=== PATIENT | male | born 1980 | race Caucasian/White ===

== ENCOUNTER 2019-07-31 11:11 | Outpatient (CLI) | payer BC, SELFPAY ==
--- NOTE | ~2019-07-31 | XR_ITS ---
EXAMINATION: XR abdomen/kub 1V INDICATION: Right flank pain, calculus of the kidney TECHNIQUE: Supine views of the abdomen were obtained on 2 radiographs. COMPARISON: 09/02/2018 FINDINGS: Stable stones measuring 6 mm and 2 mm project in the right kidney. There are phleboliths of the pelvis. No stones are identified along the expected courses of the ureters. The bowel gas patter n is normal. Mild bilateral hip osteoarthritis is noted. IMPRESSION: 1. Stable right nephrolithiasis. Reviewed, dictated and finalized at location A.
== END 2019-07-31 11:12 | disposition home or self-care (01) ==
LOC: ANHIMG 11:16
PROVIDERS: PCP Family Medicine; Visit Provider Urology
DX: N20.0 Calculus of kidney (principal)
CPT/HCPCS: 74018

== ENCOUNTER 2019-08-12 17:50 | Outpatient (CLI) | payer BC, SELFPAY ==
--- NOTE | ~2019-08-12 | CT_ITS ---
EXAMINATION: CT abdomen pelvis wo con EXAM DATE: 08/12/2019 18:37 INDICATION: Right flank pain. TECHNIQUE: Spiral CT of the abdomen and pelvis was performed without contrast. Axial, coronal and sag ittal images were reviewed. The dose-length product (DLP) for this examination was 334.20 mGy-cm. T he exposure was tailored according to patient size (auto mA exposure control), and iterative reconstr uction (ASIR) was used as additional dose reduction technique. Comparison is made to prior examinatio n from 07/28/2017. FINDINGS: There is 6 mm stone in the right renal pelvis without caliectasis, but there is mild inflam mation of the renal pelvis at this location. No hydroureter. There is 3 mm right superior calyceal st one. No left-sided nephrolithiasis. The prostate is unremarkable. The bladder is unremarkable. The liver, spleen, adrenal glands and pancreas are unremarkable. Gallbladder is unremarkable. No bilia ry obstruction. There is no retroperitoneal or pelvic lymphadenopathy. The appendix is normal. The stomach and small bowel are unremarkable. There is expected amount of c olonic stool. No free intraperitoneal gas. The heart is normal in size. There are no pericardial or pleural effusions. The lung bases are unremarkable. Chronic bilateral L5 spondylolysis without spondylolisthesis. IMPRESSION: Right renal pelvic 6 mm stone with mild regional inflammation but no hydronephrosis, does n't appear to be obstructing at present. Could be intermittently obstructing. Upper UTI not excludabl e. Reviewed, dictated and finalized at location A. IMPRESSION: Right renal pelvic 6 mm stone with mild regional inflammation but n o hydronephrosis, doesn't appear to be obstructing at present. Could be intermi ttently obstructing. Upper UTI not excludable.
== END 2019-08-12 17:51 | disposition home or self-care (01) ==
PROVIDERS: PCP Family Medicine; Visit Provider Urology
DX: R10.9 Unspecified abdominal pain (principal)
CPT/HCPCS: 74176

== ENCOUNTER 2019-09-07 08:14 | Outpatient (CLI) | payer BC, SELFPAY ==
--- NOTE | 2019-09-07 08:17 | ECG_ITS ---
Measurements Intervals [place] Rate: 80 P: 71 [place]: 148 QRS: -26 QRSD: 124 T: 46 QT: 336 QTc: 387 Interpretive Statements SINUS RHYTHM WITH SINUS ARRHYTHMIA INTRAVENTRICULAR CONDUCTION DELAY DELAYED PRECORDIAL R/S TRANSITION ST ELEVATION IN DIFFUSE LEADS, PROBABLY EARLY REPOLARIZATION BORDERLINE ECG Electronically Signed On 09-07-2019 8:58:28 CDT by Jose M Rueda D.O.
[2019-09-07 09:19] LABS: Prothrombin Time 12.5 Seconds (11.1-14.7)
== END 2019-09-07 08:15 | disposition home or self-care (01) ==
LOC: ANHSURGERY 08:17
PROVIDERS: PCP Family Medicine; Visit Provider Urology
DX: N20.0 Calculus of kidney (principal); E78.5 Hyperlipidemia, unspecified; I45.9 Conduction disorder, unspecified; R94.31 Abnormal electrocardiogram [ECG] [EKG]
CPT/HCPCS: 36415; 85610; 85730; 87086; 93005

== ENCOUNTER 2019-09-09 00:52 | Outpatient (CLI) | payer BC, SELFPAY ==
[2019-09-09 17:34] LABS: SARS-CoV-2 RNA PCR Negative
== END 2019-09-09 00:53 | disposition home or self-care (01) ==
LOC: ANHCOVIDDT 00:53
PROVIDERS: PCP Family Medicine; Visit Provider Urology
DX: Z01.812 Encounter for preprocedural laboratory examination (principal); Z11.59 Encounter for screening for other viral diseases
CPT/HCPCS: 87635; C9803; U0003

== ENCOUNTER 2019-09-11 02:03 | Day surgery (SDC) | payer BC, SELFPAY ==
[2019-09-02 14:26] VITALS: BMI 28.1
--- NOTE | 2019-09-09 14:19 | PM.HPGS ---
History of Present Illness History of Present Illness Consent: Risks, benefits, and alternatives have been discussed and questions answered. Patient agrees to proceed with procedure. Chief complaint: right renal stone Narrative: John Soria is a 38 year old male a/p one prior ESWL to the [facility] in 2019. He has 2 persistent fragments that are somewhat problematic and elects for a 2nd ESWL. Review of Systems Cardiovascular: Cardiovascular: Denies chest pain, Denies lightheadedness, Denies palpitations and Denies dyspnea Respiratory: Respiratory: Denies dyspnea Gastrointestinal: Gastrointestinal: Denies diarrhea, Denies nausea and Denies vomiting Genitourinary: Genitourinary: Denies hematuria and Denies dysuria Endocrine: Endocrine: Denies palpitations Meds Home Medications and Allergies Home Medications Medication Instructions Recorded Confirmed Type simvastatin 20 mg PO HS 09/01/19 09/02/19 History multivitamin 1 tablet PO DAILY 09/02/19 09/02/19 History Allergies Allergy/AdvReac Type Severity Reaction Status Date / Time Sulfa (Sulfonamide Allergy Unknown RASH Verified 09/02/19 14:26 Antibiotics) Exam Const: General: no acute distress Resp: Effort & Inspection: normal respiratory effort GI: Inspection: non-distended GI Palp: No abdominal tenderness and No Guarding due to palpation present (GI) Auscultation: normal bowel sounds Assessment and Plan Assessment and plan (1) Right kidney stone: Code(s): N20.0 - Calculus of kidney Status: Acute Assessment and Plan: Right ESWL
[2019-09-11] VITALS (8 sets, daily range): BP systolic 110–131; BP diastolic 70–86; PULSE 74–86; RESP 12–18; TEMP 36.3–36.8; O2SAT 98–100
--- NOTE | ~2019-09-11 | XR_ITS ---
EXAMINATION: XR abdomen/kub 1V DATE: 09/11/2019 06:18 INDICATION: Right renal extra corporeal shock wave lithotripsy. TECHNIQUE: A supine view of the abdomen on 2 radiographs was obtained. COMPARISON: 08/12/2019 FINDINGS: There are 3 stone fragments measuring between 3 mm and 6 mm along with a few minute fragments. No lef t-sided urolithiasis. Several phleboliths and atherosclerotic calcifications in the pelvis. Normal angel wel gas pattern. IMPRESSION: 1. Several stone fragments at the upper pole of the right kidney Reviewed, dictated and finalized at location A.
[2019-09-11] MEDS: LACTATED RINGERS 1,000 ML 30 ML IV CONT ×2 (06:45→08:07)
--- NOTE | 2019-09-11 06:47 | WPDHPUPDATE1 ---
History and Physical Update Update Date/Time: 09/11/19 06:47 History and Physical has been reviewed, including an updated exam of the patient. There are NO changes in the patient's condition. Risks, benefits, and alternatives have been discussed and questions answered. Patient agrees to proceed with procedure.
--- NOTE | 2019-09-11 06:59 | WPDANESEPPF ---
Anes - Initial Pre Proc Eval Procedure: Operation Date: 09/11/19 07:30 Proposed Procedures p Right Extracorporeal Shock Wave Lithotripsy - Christopher Win MD Date/Time: 09/11/19 06:59 Surgeon: Christopher Win MD Pre Op Diagnosis: right renal stone Patient Data Age: 38 Gender: M Height: 1.73 m Weight: 83.91 kg Allergies Allergy/AdvReac Type Severity Reaction Status Date / Time Sulfa (Sulfonamide Allergy Unknown RASH Verified 09/02/19 14:26 Antibiotics) Home Medications Medication Instructions Recorded Confirmed Type simvastatin 20 mg PO HS 09/01/19 09/02/19 History multivitamin 1 tablet PO DAILY 09/02/19 09/02/19 History Patient hx anesthesia problems: none Family hx anesthesia problems: none [facility] Past Medical History Medical History (Updated 09/11/19 @ 07:00 by Nestor Stack MD) Asthma CHILD Hypercholesterolemia Overweight (BMI 25.0-29.9) Right kidney stone Anes - Eval Final PreProcedure Day of Procedure 09/11/19 06:59 Patient weight: overweight Heart: regular rate and rhythm Lungs: clear to auscultation and normal air movement Airway: Mallampati scale class II Neurological: alert and oriented Last oral intake: >/= 8 hours ASA classification: II Emergent: no Anesthetic plan: proceed Anesthesia type and monitoring: general LMA Informed Consent: The patient's anesthetic plan and its attendant risks and benefits were discussed with the patient/family/POA. Questions were solicited and answers provided to the satisfaction of the patient/family/POA.
[2019-09-11] MEDS: ceFAZolin 2 GM/D5W 50 ML 2 GM/50 ML BAG IVPB (07:21)
--- NOTE | 2019-09-11 08:02 | PM.PROC ---
Procedure Note - Detailed Date of procedure: 09/11/19 Pre-op diagnosis: right renal stone Post-op diagnosis: same Procedure performed: Right ESWL Description of procedure: The patient was brought to the operative suite where he was placed in the supine position on the Dornier lithotripsy table. The focal point of the lithotripter was placed at a two stones in right kidney, each ~4mm. A total of 2500 shocks were delivered at a power setting of 4. There appeared to be good fragmentation of the stone. The patient tolerated the procedure well and was taken to the recovery room in good condition. Implants: None Anesthesia: GLMA Surgeon: Christopher Win MD Estimated blood loss (mL): 0 Drains: No Packing: No Pathology: none sent Complications: No immediate complications Condition: stable Disposition: PACU
== END 2019-09-11 09:45 | disposition home or self-care (01) ==
PROVIDERS: PCP Family Medicine; Visit Provider Urology
PROC: (CPT 50590; principal; 2019-09-11 07:30)
DX: N20.0 Calculus of kidney (principal); Z87.442 Personal history of urinary calculi; E78.5 Hyperlipidemia, unspecified; E66.3 Overweight; Z68.28 Body mass index [BMI] 28.0-28.9, adult; Z79.899 Other long term (current) drug therapy; Z88.2 Allergy status to sulfonamides
CPT/HCPCS: 50590; 74018; J0690; J1100; J2250; J2405; J2704; J3010; J7120

== ENCOUNTER 2019-12-21 08:24 | Outpatient (CLI) | payer BC, SELFPAY ==
--- NOTE | ~2019-12-21 | XR_ITS ---
XR abdomen/kub 1V DATE: 12/21/2019 08:43 INDICATION: Lithotripsy in September 2019 TECHNIQUE: AP rejection, 2 views COMPARISON: 09/11/2019 KUB FINDINGS: A triangular approximately 5 mm calcification overlies the right renal pelvis. There is a moderately prominent amount of fecal material in the right colon and transverse colon. No bowel obstruction is evident. The psoas shadows are intact. No visceromegaly is detected. There are stable bilateral pelvic calcifications. Included skeletal structures are unremarkable. IMPRESSION: 5 mm calcified right renal pelvic calculus Reviewed, dictated and finalized at Location A. Reviewed, dictated and finalized at location A.
== END 2019-12-21 08:25 | disposition home or self-care (01) ==
PROVIDERS: PCP Family Medicine; Visit Provider Urology
DX: N20.0 Calculus of kidney (principal)
CPT/HCPCS: 74018

== ENCOUNTER 2021-03-06 08:12 | Outpatient (CLI) | payer BC, SELFPAY ==
--- NOTE | ~2021-03-06 | XR_ITS ---
XR abdomen/kub 1V DATE: 03/06/2021 08:27 INDICATION: Right flank pain. History of stones. TECHNIQUE: AP view COMPARISON: 12/21/2019 KUB FINDINGS: Previously reported 5 mm calcified calculus overlying the right renal pelvis on 12/21/2019 K UB currently overlies the lower pole of the right kidney. No other apparent urinary tract calcificati on is seen or change since 12/21/2019 is noted. The psoas shadows are intact. No visceromegaly is detected. There is a prominent amount of fecal material in the colon but no evidence of bowel obstruction. IMPRESSION: Nonobstructing 5 mm calcified calculus of the lower pole right kidney Reviewed, dictated and finalized at Location A. Reviewed, dictated and finalized at location B. ER IMPRESSION: Nonobstructing 5 mm calcified calculus of the lower pole right kidn ey
== END 2021-03-06 08:13 | disposition home or self-care (01) ==
LOC: ANHIMG 08:16
PROVIDERS: PCP Family Medicine; Visit Provider Urology
DX: R10.9 Unspecified abdominal pain (principal); N20.0 Calculus of kidney
CPT/HCPCS: 74018

== ENCOUNTER 2021-06-26 15:46 | Emergency (ER) | payer BC, SELFPAY ==
--- NOTE | ~2021-06-26 | XR_ITS ---
EXAM: [id number] HISTORY: neck pain x 1 yr, worsening Rt sided pain; no injury COMPARISON: None available FINDINGS: Craniocervical association and atlantoaxial joint are normal. No prevertebral soft tissue swelling. Mild anterior wedge deformity of C7, presumed chronic given the lack of injury history. The facets are aligned. 2 mm retrolisthesis of C5 on C6. Remaining vertebral bodies are aligned. IMPRESSION: Presumed old mild wedge compression deformity at C7. Trace retrolisthesis of C5 on C6, presumably on a degenerative basis. Reviewed, dictated and finalized at location K.
[2021-06-26 15:55] VITALS: BP 145/96; PULSE 80; RESP 16; TEMP 36.6; O2SAT 100
[2021-06-26 17:46] VITALS: PULSE 70; RESP 18; O2SAT 100
[2021-06-26 17:47] VITALS: BP 148/90
--- NOTE | 2021-06-26 18:32 | ED.GENADULT ---
HPI - General Adult General Chief complaint: Headache Stated complaint: head pressure Time Seen by Provider: 06/26/21 16:52 History of Present Illness HPI narrative: Patient is a 40-year-old male who presents for 1 year of left and right ear pain that is increased in severity over the past 3 days. Patient states the pain begins in his left ear and radiates over to his right ear along his jaw. It is provoked by certain positions, but for past 2 days has been relatively constant. Tried 500 mg of Tylenol today without relief, however he has not taken any medications in the past for this. Additionally reports some right-sided neck pain that is also provoked with positions. States that he wants to get checked out before he leaves town . He denies any fever, visual changes, weakness, falls, trauma to his neck or head, ear discharge, numbness or tingling in his extremities. Related Data Home Medications Medication Instructions Recorded Confirmed simvastatin 20 mg PO HS 09/01/19 06/26/21 multivitamin 1 tablet PO DAILY 09/02/19 06/26/21 Allergies Allergy/AdvReac Type Severity Reaction Status Date / Time Sulfa (Sulfonamide Allergy Unknown RASH Verified 09/11/19 07:31 Antibiotics) Review of Systems Review of Systems: Gen: Denies fevers or chills Eyes: Denies eye pain or visual change ENT: Reports ear pain. Denies congestion Respiratory: Denies shortness of breath or cough CV: Denies chest pain or palpitations GI: Denies abdominal pain nausea, emesis or diarrhea denies burning, urgency, frequency or hematuria Musculoskeletal: Reports neck pain. Denies back pain or muscle pain Neuro: Denies numbness, tingling, weakness or focal weakness Skin: Denies rash Except as documented, all other systems reviewed and negative [facility] Past Medical History Medical History Asthma CHILD Hypercholesterolemia Overweight (BMI 25.0-29.9) Right kidney stone Exam Narrative: APPEARANCE: Anxious appearing male. Head is normocephalic and atraumatic. EYES: PERRLA/EOMI, conjunctivae clear NOSE: No nasal drainage EARS: Left ear is mildly erythematous. No mastoid tenderness bilaterally. No pain when pulling on tragus. TMs clear bilaterally. THROAT: Oropharynx is clear. Mucous membranes are moist. NECK: Supple. No adenopathy, no masses. RESPIRATORY: Airway patent, respirations nonlabored. Clear to auscultation bilaterally, no rales, rhonchi, wheezing. CARDIOVASCULAR: Regular rate and rhythm without murmurs, rubs, or gallops. ABDOMINAL: Normoactive bowel sounds. Soft, nontender, nondistended. No rebound tenderness or guarding. MUSCULOSKELETAL: Spurling's test positive. No midline tenderness along the C-spine or T-spine. Full range of motion in neck without pain. 2+ radial pulses bilaterally. Full range of motion in bilateral arms without difficulty. No edema. NEURO: Cranial nerves II through XII intact. Normal speech. SKIN:: Skin is warm and dry. No rashes. PSYCHIATRIC: Anxious mood. Course Vital Signs Vital signs: Vital Signs Temperature 97.9 F 06/26/21 15:55 Pulse Rate 80 06/26/21 15:55 Respiratory Rate 16 06/26/21 15:55 Blood Pressure 145/96 H 06/26/21 15:55 Pulse Oximetry 100 06/26/21 15:55 Temperature 97.9 F 06/26/21 15:55 Pulse Rate 70 06/26/21 17:46 Respiratory Rate 18 06/26/21 17:46 Blood Pressure 148/90 H 06/26/21 17:47 Pulse Oximetry 100 06/26/21 17:46 Medical Decision Making [facility] Narrative Medical decision making narrative: 40-year-old male here for evaluation of neck pain that has been present for over a year, but has worsened without obvious trigger for the past 3 days. Patient has no cranial nerve deficits with clear TMs bilaterally. Spurling's test positive, which is suspicious for cervical radiculopathy. X-rays with evidence of old compression deformity at C7 and presumably degenerative retrolisthesis on C5 an
[2021-06-26] MEDS: IBUPROFEN 600 MG TABLET PO (19:24)
== END 2021-06-26 19:51 | disposition home or self-care (01) ==
PROVIDERS: Emergency Provider Emergency Medicine; PCP Family Medicine
DX: M54.12 Radiculopathy, cervical region (principal); J45.909 Unspecified asthma, uncomplicated; E78.00 Pure hypercholesterolemia, unspecified; E66.3 Overweight; Z68.28 Body mass index [BMI] 28.0-28.9, adult; Z87.442 Personal history of urinary calculi
CPT/HCPCS: 72040; 99283; A9270

== ENCOUNTER 2021-07-07 14:38 | Outpatient (CLI) | payer BC, SELFPAY ==
--- NOTE | ~2021-07-07 | CT_ITS ---
EXAMINATION: CT thoracic spine wo con DATE: 07/07/2021 15:15 INDICATION: Upper back pain TECHNIQUE: Computed tomography (CT) of the thoracic spine was performed without intravenous contrast. Automated exposure control and iterative reconstruction technique were employed. The dose-length pro duct was 975.48 mGy-cm. COMPARISON: None FINDINGS: 5 mm thoracic dextrocurvature. Sagittal alignment is normal. Chronic appearing mild anterior wedging at T1. Remaining thoracic vertebral body heights are normal. Disc heights are normal. Scattered minim al to mild thoracic facet osteoarthritis. No central canal or neural foraminal stenosis. Mild depende nt atelectasis in the bilateral lower lobes. 6 mm nonobstructing stone at a lower pole calyx of the r ight kidney. IMPRESSION: 1. 5 degrees thoracic dextrocurvature. 2. Chronic appearing mild anterior wedging at T1. No acute osseous abnormality. 3. 6 mm nonobstructing right renal stone. Reviewed, dictated and finalized at location A.
--- NOTE | ~2021-07-07 | CT_ITS ---
EXAMINATION: CT cervical spine wo con DATE: 07/07/2021 15:15 INDICATION: Neck pain TECHNIQUE: Computed tomography (CT) of the cervical spine was performed without intravenous contrast. Automated exposure control and iterative reconstruction technique were employed. The dose-length pro duct was 422.67 mGy-cm. COMPARISON: Helical spine radiographs dated 06/26/2021 FINDINGS: Chronic 1 mm retrolisthesis C5 on C6. Alignment is otherwise normal. Unchanged none. Minimal anterior wedging at T7 and T1. No fracture. Disc heights are normal. Scattered mild cervical uncovertebral an d facet osteoarthritis. No significant central canal or neural foraminal stenosis. The mastoid air ce lls, middle ear cavities and visualized portions of the airway, paranasal sinuses and apices of lungs are clear. IMPRESSION: 1. Negligible cervical spondylosis with chronic mild anterior wedging at C7 and T1. No acute osseous abnormality. Reviewed, dictated and finalized at location A.
== END 2021-07-07 14:39 | disposition home or self-care (01) ==
PROVIDERS: PCP Family Medicine; Visit Provider Family Medicine
DX: M54.2 Cervicalgia (principal); M54.6 Pain in thoracic spine; N20.0 Calculus of kidney
CPT/HCPCS: 72125; 72128

== ENCOUNTER 2023-08-02 08:14 | Outpatient (CLI) | payer BC, SELFPAY ==
--- NOTE | ~2023-08-02 | XR_ITS ---
EXAMINATION: XR abdomen/kub 1V DATE: 08/02/2023 08:32 INDICATION: Calculus of kidney. TECHNIQUE: A supine view of the abdomen on 2 radiographs was obtained. COMPARISON: Abdomen radiograph 03/06/2021, CT abdomen and pelvis 08/12/2019 FINDINGS: There are no dilated loops of bowel. The kidneys are obscured by bowel. There is an [address] one in right kidney. There are phleboliths in the pelvis. IMPRESSION: 1. 8 mm stone in right kidney. Reviewed, dictated and finalized at location E.
== END 2023-08-02 08:15 | disposition home or self-care (01) ==
PROVIDERS: PCP Family Medicine; Visit Provider Urology
DX: N20.0 Calculus of kidney (principal)
CPT/HCPCS: 74018

== ENCOUNTER 2023-09-13 09:12 | Outpatient (CLI) | payer BC, SELFPAY ==
--- NOTE | ~2023-09-13 | CT_ITS ---
EXAMINATION: CT abdomen pelvis wo con DATE: 09/13/2023 09:28 INDICATION: Calculus in right kidney. TECHNIQUE: Computed tomography (CT) of the abdomen and pelvis was performed without intravenous contr ast. Automated exposure control and iterative reconstruction technique were employed. The dose-length product was 561.33 mGy-cm. COMPARISON: CT abdomen and pelvis 08/12/2019 FINDINGS: The visualized portions of the lung bases demonstrate mild atelectasis. No pleural effusion . The heart size is normal. No pericardial effusion. The liver, gallbladder, spleen, pancreas, adrena l glands, and left kidney are normal. There is a 7 mm stone in right kidney. There is a 5 mm stone in distal right ureter. There are no dilated loops of bowel. The appendix is normal. There are no patho logically enlarged lymph nodes. There is no free intraperitoneal fluid. There are chronic bilateral L 5 pars defects. IMPRESSION: 1. 5 mm stone in distal right ureter. No hydronephrosis. 2. 7 mm nonobstructing right kidney stone. Reviewed, dictated and finalized at location A.
== END 2023-09-13 09:13 ==
LOC: MICIMG 09:13
PROVIDERS: PCP Family Medicine; Visit Provider Urology
DX: N20.2 Calculus of kidney with calculus of ureter (principal)
CPT/HCPCS: 74176

== ENCOUNTER 2023-12-14 07:29 | Outpatient (CLI) | payer BC, SELFPAY ==
--- NOTE | 2023-12-14 07:58 | ECG_ITS ---
Test Date: 2023-12-14 08:05:40 Measurements Intervals [place] Rate: 79 P: 65 [place]: 169 QRS: 4 QRSD: 94 T: 57 QT: 349 QTc: 400 Interpretive Statements SINUS RHYTHM INCOMPLETE RIGHT BUNDLE BRANCH BLOCK BORDERLINE ECG No previous ECG available for comparison Electronically Signed On 12-14-2023 08:53:39 CDT by Jose M Rueda D.O.
[2023-12-14 08:30] LABS: INR 1.1; Prothrombin Time 14.2 Seconds (11.1-14.7)
[2023-12-14 08:31] LABS: Partial Thromboplastin Time 29.5 Seconds (22.3-36.8)
== END 2023-12-14 07:30 | disposition home or self-care (01) ==
LOC: ANHLAB 07:30
PROVIDERS: PCP Family Medicine; Visit Provider Urology
DX: N20.1 Calculus of ureter (principal); E78.00 Pure hypercholesterolemia, unspecified; I45.10 Unspecified right bundle-branch block
CPT/HCPCS: 36415; 85610; 85730; 87086; 93005

== ENCOUNTER 2023-12-20 04:26 | Day surgery (SDC) | payer BC, SELFPAY ==
--- NOTE | 2023-12-10 07:24 | PM.HPGS ---
History of Present Illness History of Present Illness Consent: Risks, benefits, and alternatives have been discussed and questions answered. Patient agrees to proceed with procedure. Chief complaint: renal &ureteral right stones Narrative: John Soria is a 43 year old male with a history of recurrent urolithiasis. In August 2023 he had right flank pain and imaging demonstrating an 8 mm right lower calyceal stone and a 5 mm right distal ureteral calculus. He presents for simultaneous ureteroscopy and right ESWL. He is aware of the risks including, but not limited to, need for additional procedures, stent placement, hematuria and perinephric hematoma [facility] Past Medical History Medical History Asthma CHILD Hypercholesterolemia Overweight (BMI 25.0-29.9) Right kidney stone Meds Home Medications and Allergies Home Medications Medication Instructions Recorded Confirmed Type simvastatin 20 mg tablet 20 mg PO HS 09/01/19 06/26/21 History multivitamin 1 tablet PO DAILY 09/02/19 06/26/21 History Allergies Allergy/AdvReac Type Severity Reaction Status Date / Time Sulfa (Sulfonamide Allergy Unknown RASH Verified 09/11/19 07:31 Antibiotics) Exam Const: General: no acute distress Resp: Effort & Inspection: normal respiratory effort GI: Inspection: non-distended GI Palp: No abdominal tenderness and No Guarding due to palpation present (GI) Auscultation: normal bowel sounds Assessment and Plan Assessment and plan (1) Right kidney stone: Code(s): N20.0 - Calculus of kidney Status: Acute (2) Right ureteral stone: Code(s): N20.1 - Calculus of ureter Status: Acute Assessment and Plan: Cystoscopy, right ureteroscopy with stone extraction, possible laser lithotripsy, retrograde pyelography and stent placement. Right ESWL
[2023-12-13 14:11] VITALS: BMI 28.9
--- NOTE | 2023-12-13 14:19 | PC.NURSE ---
Report to the Outpatient Waiting Room, entrance under the green pavilion located off [facility], at time _0600_ on date _11-16-2074_. Planned Procedure Time: _0730_.? Time changes happen often and if your time is changed the preop area will call you the afternoon before. - You and your visitor will be asked to self-screen and do not enter if you have any COVID symptoms. Please call surgeon if you need to reschedule. - A mask is optional within the hospital at this time. Patients may have clear liquids (water, carbonated beverages, clear teas, apple juice) until 3 hours prior to surgery with a maximum of 20 ounces. - No food from midnight until time of surgery and no smoking Take only the following medications with a SIP of water on the morning of surgery: ___None DO NOT STOP ANY OF YOUR OTHER PRESCRIPTION MEDICATIONS PRIOR TO SURGERY EXCEPT THE FOLLOWING Medications to discontinue per physician Multivitamin Date to take last szpx____[id number] Please no make-up, nail gabonese, hairspray, perfume, deodorant, or body powder the day of surgery.? No jewelry (including any body piercings) or valuables the day of surgery, leave them at home.? Please take a shower or bath the night before, or the morning of, surgery with an antibacterial soap.? Wear comfortable, loose fitting clothing.? - Jewelry must be removed prior to entering the operating room.? Rings and piercings that are not removed may be cut off. - The hospital will not accept responsibility for valuables.? - Please leave all valuables, including medications, at home the day of surgery. If you are going home after surgery, a licensed personal driver must drive you home.? - NO public transportation without another adult if you receive anesthesia. - We recommend that an adult stay with you for 24 hours following discharge. - We also recommend that you do not drive, make important decision, drink alcoholic beverages, or take any drugs that were not prescribed by your health care provider for at least 24 hours after your discharge time. Follow any additional instructions given to you from your surgeon. Telephone instructions given to __Jared___and asked if any additional questions and then verbalized understanding. Patient advised to call surgeon office or pre surgery nurse liaison [phone] if any additional questions.
[2023-12-20] VITALS (8 sets, daily range): BP systolic 113–143; BP diastolic 67–90; PULSE 72–89; RESP 14–22; TEMP 36.2–36.3; O2SAT 97–100
--- NOTE | ~2023-12-20 | XR_ITS ---
Supine and upright views of the abdomen Clinical history: Lithotripsy COMPARISON: 08/02/2023 Findings: Bowel gas pattern is nonspecific. No evidence for obstruction or free air. 8 mm stone prese nt at the lateral interpolar region of the right kidney.. Osseous structures are intact. Impression: 8mm right renal stone, as above. Reviewed, dictated and finalized at location . Impression: 8mm right renal stone, as above.
--- NOTE | 2023-12-20 06:27 | WPDHPUPDATE1 ---
History and Physical Update Update Date/Time: 12/20/23 06:27 History and Physical has been reviewed, including an updated exam of the patient. There are NO changes in the patient's condition. Risks, benefits, and alternatives have been discussed and questions answered. Patient agrees to proceed with procedure.
[2023-12-20] MEDS: LACTATED RINGERS 1,000 ML 30 ML IV CONT ×2 (06:40→09:13)
--- NOTE | 2023-12-20 07:24 | WPDANESEPPF ---
Anes - Initial Pre Proc Eval Procedure: Operation Date: 12/20/23 07:30 Proposed Procedures p Right Extracorporeal Shock Wave Lithotripsy, - Christopher Win MD s Cystoscopy, Right Ureteroscopy, Right Stone Extraction, Possible Right Retrograde Pyelogram, Possible Right Stent Placement, Possible Holmium Laser - Christopher Win MD Date/Time: 12/20/23 07:24 Surgeon: Christopher Win MD Pre Op Diagnosis: renal &ureteral right stones Patient Data Age: 43 Gender: M Height: 1.73 m Weight: 93.7 kg Last Vital Signs Temp 97.1 F L 12/20/23 06:20 Pulse 82 12/20/23 06:20 Resp 20 12/20/23 06:20 BP 123/82 12/20/23 06:20 Pulse Ox 99 12/20/23 06:20 O2 Del Method Room Air 12/20/23 06:20 Allergies Allergy/AdvReac Type Severity Reaction Status Date / Time Sulfa (Sulfonamide Allergy Unknown RASH Verified 12/20/23 06:24 Antibiotics) Home Medications Medication Instructions Recorded Confirmed Type simvastatin 20 mg tablet 20 mg PO HS 09/01/19 12/20/23 History multivitamin 1 tablet PO DAILY 09/02/19 12/20/23 History Patient hx anesthesia problems: none Family hx anesthesia problems: none Results Review: All pre-operative results and documents have been reviewed as part of the pre-operative evaluation. [facility] Past Medical History Medical History Asthma CHILD Hypercholesterolemia Overweight (BMI 25.0-29.9) Right kidney stone Social History Social History Smoking status: Never smoker Alcohol intake: current Drinks per week: 2 Living arrangements: with family Spiritual care concerns: No Anes - Eval Final PreProcedure Day of Procedure 12/20/23 07:24 Patient weight: overweight Heart: regular rate and rhythm Lungs: clear to auscultation Airway: Mallampati scale class II Neurological: alert and oriented Last oral intake: >/= 8 hours ASA classification: II Emergent: no Anesthetic plan: proceed Anesthesia type and monitoring: general LMA and standard monitoring Results Review: All pre-operative results and documents have been reviewed as part of the pre-operative evaluation. Hyperlipidemia, mild asthma, stable of recent. Informed Consent: The patient's anesthetic plan and its attendant risks and benefits were discussed with the patient/family/POA. Questions were solicited and answers provided to the satisfaction of the patient/family/POA.
[2023-12-20] MEDS: ceFAZolin 2 GM/D5W 50 ML 2 GM/50 ML BAG IVPB (07:27)
[2023-12-20] MEDS: LIDOCAINE HCL 2% GEL UROJET 10 ML PKG MUCOUS MEM (07:45)
--- NOTE | 2023-12-20 07:50 | W.PM.PROC2 ---
Procedure Note - Detailed Date of Procedure 12/20/23 Pre-op Diagnosis Right renal and distal ureteral stones Post-op Diagnosis Same Procedure Performed Cystoscopy, right ureteroscopy with stone extraction, right ESWL Surgeon Christopher Win MD Anesthesia General Description of Procedure Patient is brought to the operative suite was prepped draped in routine sterile fashion 1st in a dorsal lithotomy position after the uneventful induction of a general LMA anesthetic. Cystoscopy was undertaken with a 19 F rigid cystoscope. He has no urethral stricture and minimal prostatic hyperplasia. Bladder mucosa is normal notes no intravesical foreign body or neoplasm. A 0.035 in glidewire was advanced to his right renal pelvis and the distal ureter was dilated with an 8 F 10 F dilator. Ureteroscopy was undertaken with a short tapered semi-rigid ureteral scope. His 5 mm stone persisting his distal right ureter. It is extracted with a 1.9 F disposable stone basket with ease. Because the ease of this manipulation I opted not to place a right ureteral stent. The patient was then repositioned in the supine position. The focal point of Lithotripter was placed it is 8 mm calcified right renal calculus which was easily visualized. Total of 2500 shocks were delivered at a power setting up to 4. Patient tolerated this procedure well was taken recovery good condition.
--- NOTE | 2023-12-20 08:50 | SUR.PHASEI ---
Simple mask removed [id number]
[2023-12-20] MEDS: fentaNYL CITRATE INJ (*CRX) 100 MCG/2 ML VIAL 25 MCG IV PUSH ×2 (09:00→09:05)
[2023-12-20] MEDS: oxyCODONE HCL (*CRX) 5 MG TAB IR PO (09:31)
== END 2023-12-20 10:20 | disposition home or self-care (01) ==
PROVIDERS: PCP Family Medicine; Visit Provider Urology
PROC: (CPT 50590; principal; 2023-12-20 07:30)
PROC: (CPT 52352; 2023-12-20 07:30)
DX: N20.2 Calculus of kidney with calculus of ureter (principal); E78.00 Pure hypercholesterolemia, unspecified
CPT/HCPCS: 52332; 50590; 74018; 82365; 88300; A9270; C1769; J0690; J2003; J2250; J2405; J2704; J3010; J7120

== ENCOUNTER 2023-12-27 11:32 | Outpatient (CLI) | payer BC, SELFPAY ==
--- NOTE | ~2023-12-27 | XR_ITS ---
XR abdomen/kub 1V Ordering provider: Christopher Win MD History: . RIGHT URETERAL STONE F/U 1 WEEK POST LITHOTRIPSY . Comparison: December 20, 2023 FINDINGS: BOWEL: Nonobstructive bowel gas pattern. ORGANOMEGALY: None. SIGNIFICANT PATHOLOGIC CALCIFICATIONS: Calcific shadows projected over the right sacral alar most lik fabio ureteric stones. OTHER: No free air is seen under the diaphragm. 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 IMPRESSION: NO ACUTE ABDOMINAL FINDINGS. Right lower ureteric stones. Reviewed, dictated and finalized at location A.
== END 2023-12-27 11:33 | disposition home or self-care (01) ==
LOC: ANHIMG 11:37
PROVIDERS: PCP Family Medicine; Visit Provider Urology
DX: N20.1 Calculus of ureter (principal)
CPT/HCPCS: 74018

== ENCOUNTER 2024-07-08 15:50 | Outpatient (CLI) | payer BC, SELFPAY ==
--- NOTE | ~2024-07-08 | XR_ITS ---
Exam: Abdomen 1V HISTORY: N20.0 - Calculus of kidney, FOLLOW UP COMPARISON: 12/27/2023 and 12/20/2023 TECHNIQUE: Supine images of the abdomen FINDINGS: Bowel gas pattern is nonspecific and non-obstructive. There is no free air or deep sulci. Decreased quantity of the calculi within the right hemipelvis, when compared with previous examinatio n. 9 mm calculus previously detected at the level of L2, projecting over the right kidney on 12/20/2023 i s no longer visualized on today's study. Lung bases are unremarkable. Bones and soft tissues are unremarkable. IMPRESSION: Nonspecific, nonobstructive bowel gas pattern. Decreased quantity of the calculi within the right hemipelvis, when compared with previous examinatio n. Reviewed, dictated and finalized at location A. IMPRESSION: Nonspecific, nonobstructive bowel gas pattern. Decreased quantity of the calculi within the right hemipelvis, when compared wi th previous examination.
--- OUTSIDE RECORDS SUMMARY | 2024-07-08 17:33 | XMS_ITS | Clinical Summary ---
Author Organization [facility] Address [address] [place] [address] Care Team Providers Care Rod Welder Name Role Phone Unavailable Primary Care Provider Unavailabl e Social History Tobacco Use Types Packs/Day Years Used Date Smoking Tobacco: Never Assessed Comments Unknown Sex and Gender Information Value Date Recorded Sex Assigned at Not on file Legal Sex Unknown 04/10/2019 1:18 AM PST Gender Identity Not on file Sexual Orientation Not on file Plan of Treatment Not on file
--- OUTSIDE RECORDS SUMMARY | 2024-07-08 17:33 | XMS_ITS | Encounter Summary ---
Author Organization [facility] Address [address] [place] [address] Care Team Providers Care Clarifier Name Role Phone Unavailable Primary Care Provider Unavailabl e Prior Encounters Date Type Department Care Team Description 04/06/2019 Converted 13x Documents [facility] [address] [place] [address] <No scans attached> Plan of Treatment Not on file Visit Diagnoses Not on file
--- OUTSIDE RECORDS SUMMARY | 2024-07-08 17:33 | XMS_ITS | Clinical Summary ---
Author Organization [facility] Address [address] [place] [address] Care Team Providers Care Spot Man Name Role Phone Artur Flores MD Primary Care Provider Source Comments [facility],non-owned Affiliates and Associated Physician Practices is amultiple site organization consisting of ambulatory clinics and hospital sitesin [place], [place], [place] and [place]. This disclosure is being madepursuant to the Care Everywhere program and may not contain all information available regarding this patient. Last updated 17.[facility] [place] Allergies Active Allergy Reactions Criticality Noted Date Comments Sulfa Drugs 03/26/2017 Medications * Be aware that medications may not be up to date on this document. Alwaysverify current medications with the patient. 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 Gender Identity Not on file Sexual Orientation Not on file Last Filed Vital Signs Vital Sign Reading Time Taken Comments Blood Pressure 120/80 11/07/2020 9:26 AM CDT Pulse 68 11/07/2020 9:26 AM CDT Temperature 36.8 C (98.3 F) 11/07/2020 9:26 AM CDT Respiratory Rate 16 11/07/2020 9:26 AM CDT Oxygen Saturation 98% 11/07/2020 9:26 AM CDT Inhaled Oxygen Concentration - - Weight 86.2 kg (190 lb) 11/07/2020 9:26 AM CDT Height 172.7 cm (5' 8 ) 11/07/2020 9:26 AM CDT Body Mass Index 28.89 11/07/2020 9:26 AM CDT Plan of Treatment Health Maintenance Due Date Last Done Comments COLOGUARD (AGES 45-75) - COL ON CA SCREENING 1978 COLON MONITORING 1978 COLONOSCOPY - COLON CA SCREENING 1978 CT COLONOGRAPHY - COLON CA SCREENING 1978 Colorectal Cancer Screening 1978 FIT - COLON CA SCREENING 1978 FLEX SIG - COLON CA SCREENING 1978 HIV SCREENING 1993 HEPATITIS C SCREENING 11/01/1996 DTAP/TDAP/TD VACCINES (1 - Tdap) 1997 HEPATITIS B VACCINE (1 of 3 - 19+ 3-dose series) 1997 SCREENING FOR DIABETES 11/07/2020 COVID-19 VACCINE (3 - 2023-2 5 season) 2023 06/26/2020, 06/03/2020 DEPRESSION SCREENING 03/18/2024 INFLUENZA VACCINE (Season Ended) 2024 12/05/2012 ZOSTER VACCINE (1 of 2) 2028 HIB VACCINE Aged Out No longer eligi ble based on patient's age to complete this topic HPV VACCINE Aged Out No longer eligi ble based on patient's age to complete this topic MENINGOCOCCAL (Group B) VACCINE SHARED DECISION-MAKING Aged Out No longer eligible based on patient's age to complete this topic MENINGOCOCCAL GROUPS A/C/Y/W VACCINE Aged Out No longer eligible b ased on patient's age to complete this topic PNEUMOCOCCAL VACCINE Aged Out No long er eligible based on patient's age to complete this topic Insurance [facility] SELF PAY NO INSURANCE Member Subscriber Plan / Payer (Ef fective for All Dates) Name:Darwin Soria Member ID:Not on file Relation to Subscriber:Not on file Name:DARWIN SORIA Subscriber ID:Not on file (Home) Address: [address] [place] [address] [place] [address] Payer ID:Not on file Group ID:Not on file Type:Self Pay Address: [place], [place] Care Teams Spot Man Relationship Specialty Start Date End Date Artur Flores MD [address] [place], [place] [id number] PCP - General Family Medicine 03/26/17
== END 2024-07-08 15:51 | disposition home or self-care (01) ==
PROVIDERS: PCP Family Medicine; Visit Provider Urology
DX: N20.0 Calculus of kidney (principal)
CPT/HCPCS: 74018